=== PATIENT | male | born 1965 | race Caucasian/White ===

== ENCOUNTER 2023-05-07 10:10 | Emergency (ER) | payer SELFPAY ==
[~2023-05-07] VITALS: Ht 162.6 cm; Wt 64.0 kg
[2023-05-07 10:14] VITALS: BP 140/84
--- NOTE | 2023-05-07 10:18 | NUR ---
Patient ambulated to bed 4.
--- NOTE | 2023-05-07 10:30 | NUR ---
58 y/o male bib self with c/o laceration to left thumb. Patient states he was using a table saw and cut his finger. Patient states last tetanus was 2 years ago. Patient has been taking Tylenol for pain. Patient has no active bleeding at this time. Patient is able to move finger. Medical History: Denies NKDA
--- NOTE | 2023-05-07 10:33 | NUR ---
WOUND TO L THUMB IRRIGATED. SUTURE SET UP
[2023-05-07] MEDS ORDERED: LIDOCAINE 1% 500 MG/ 50 ML VIAL INJ ONE (10:50)
[2023-05-07] MEDS ORDERED: LIDOCAINE MPF 1% 5 ML ONE (10:53)
--- NOTE | 2023-05-07 11:06 | NUR ---
X-RAY AT BEDSIDE.
[2023-05-07] MEDS ORDERED: NAPR-1704 PO (11:50)
[2023-05-07] MEDS ORDERED: CEPH-588 PO (11:50)
[2023-05-07] MEDS ORDERED: BACITRACIN OINT 500 UNITS/GM PKT TP ONE ×2 (11:51→11:55)
--- NOTE | 2023-05-07 12:01 | NUR ---
FROG SHORT FINGER SPLINT APPLIED TO L THUMB. NON ADHERENT APPLIED.
[2023-05-07 12:13] VITALS: BP 131/76
--- NOTE | 2023-05-07 12:13 | NUR ---
Patient discharged with v/s stable. Written and verbal after care instructions given. Patient alert, oriented and verbalized understanding of instructions. Ambulatory with steady gait. All questions addressed prior to discharge. ID band removed. Patient advised to follow up with PMD. Rx of Keflex and Naproxen given. Opportunity to ask questions provided and answered.
--- NOTE | 2023-05-07 13:06 | NUR ---
The patient's care was reviewed and supervised by [facility], RN.
== END 2023-05-07 12:13 | disposition home or self-care (01) ==
LOC: MED 10:10
DX: S61.012A Laceration without foreign body of left thumb without damage to nail, initial encounter (principal); Z79.899 Other long term (current) drug therapy; W45.8XXA Other foreign body or object entering through skin, initial encounter; Y93.89 Activity, other specified; Y92.89 Other specified places as the place of occurrence of the external cause; Y99.8 Other external cause status
CPT/HCPCS: 12002; 73140; 99283; J2001